=== PATIENT | male | born 1975 | race African-American/Black ===

== ENCOUNTER 2017-01-17 11:44 | Emergency (ER) | payer MEDICAID ==
[~2017-01-17] VITALS: Ht 188 cm; Wt 115.7 kg
[~2017-01-17 11:44] MED LIST: NKM; ZOFRAN ODT4 MG ORAL
--- NOTE | 2017-01-17 12:30 | Emergency Room Report ---
History of Present Illness General Chief Complaint: General Complaint Source: Patient Present Illness HPI Patient presents with 2 different complaints Initially reports that for the past 2 weeks he felt tingling and sharp pain to the left anterior upper thigh Denies any cramping pain denies any focal weakness Pain is 5/10 Starts just below the inguinal region anteriorly just above the knee Denies any fall or trauma Denies any back pain Denies any calf pain Patient also reports discoloration of his fore head bilaterally This occurred about one week ago Doesn't recall any medications or any other contact Denies any chest pain or shortness of breath denies any vomiting or diarrhea denies any recent travel Allergies: Coded Allergies: No Known Allergies (Unverified , 10/10/15) Patient History Past Medical History: see triage record Pertinent Family History: none Reviewed Nursing Documentation: PMH: Agreed, PSxH: Agreed Nursing Documentation-PMH Past Medical History: No Stated History Review of Systems All Other Systems: negative except mentioned in HPI Physical Exam Vital Signs Date Time Temp Pulse Resp B/P (MAP) Pulse Ox O2 Delivery O2 Flow Rate FiO2 01/17/17 11:45 98.1 57 18 128/84 98 Room Air Sp02 EP Interpretation: reviewed, normal General Appearance: well appearing, no apparent distress Head: normocephalic, atraumatic Eyes: bilateral eye PERRL, bilateral eye EOMI ENT: hearing grossly normal, normal pharynx, TMs + canals normal, uvula midline Neck: full range of motion, supple, no meningismus, no bony tend Respiratory: lungs clear, normal breath sounds, no rhonchi, no respiratory distress, no retraction, no accessory muscle use Cardiovascular #1: normal peripheral pulses, regular rate, rhythm, no edema, no gallop, no JVD, no murmur Gastrointestinal: normal bowel sounds, non tender, soft, no mass, no organomegaly, non-distended, no guarding, no hernia, no pulsatile mass, no rebound Genitourinary: no CVA tenderness Musculoskeletal: normal inspection - Subjectively patient has a sharp tingling discomfort left anterior thigh, however no obvious blisters, no obvious dermatomal finding. There is a questionable mild discoloration. The fore head reveals darker pigmented skin just above bilateral eyebrows, there is a somewhat malar presentation to it Neurologic: oriented x3, responsive, application development team lead III-XII nml as tested, motor strength/ tone normal Psychiatric: mood/affect normal Skin: palpation normal, other - as above Lymphatic: normal inspection, no adenopathy Medical Decision Making Diagnostic Impression: Primary Impression: Neuropathy Additional Impression: Rash and nonspecific skin eruption ER Course Multiple differentials are entertained Rhabdomyolysis does not appear to be clinically in line with the presentation There is a neuropathic component to this However patient has no back discomfort Consideration for shingles is made without the obvious rash, course the patient' s facial complaints multiple pathologies such as autoimmune disease and lupus also considered At this time however patient has a benign clinical evaluation I did not feel that any further emergency workup was required and the patient is stable for close outpatient followup Last Vital Signs Date Time Temp Pulse Resp B/P (MAP) Pulse Ox O2 Delivery O2 Flow Rate FiO2 01/17/17 11:45 98.1 57 18 128/84 98 Room Air Status: unchanged Disposition: HOME, SELF-CARE Condition: Stable Additional Instructions: Patient is provided with the discharge instructions notified to follow up with primary doctor in the next 2-3 days otherwise return to the er with any worsening symptoms. Please note that this report is being documented using [employer] technology. This can lead to erroneous entry secondary to incorrect interpretation by the dictating instrument. CRISPIN SALTER D.O. Jan 17, 2017 12:30
[2017-01-17] MEDS ORDERED: ACYCLOVIR400 MG ORAL (12:31)
[2017-01-17] MEDS ORDERED: PREDNISONE20 MG ORAL (12:31)
[2017-01-17 12:39] VITALS: BP 128/84
== END 2017-01-17 12:40 | disposition home or self-care (01) ==
LOC: EMR 12:20
DX: G62.9 Polyneuropathy, unspecified (principal); R21 Rash and other nonspecific skin eruption
CPT/HCPCS: 99284

== ENCOUNTER 2017-02-13 06:57 | Emergency (ER) | payer MEDICAID ==
[~2017-02-13] VITALS: Ht 188 cm; Wt 115.7 kg
[~2017-02-13 06:57] MED LIST changes: +ACYCLOVIR400 MG ORAL; +PREDNISONE20 MG ORAL
[2017-02-13 07:12] VITALS: BP 130/79
[2017-02-13] MEDS ORDERED: Fluorescein Strips ONE (07:14)
[2017-02-13] MEDS ORDERED: Fluorescein Strips LEFT EYE ONE (07:15)
[2017-02-13] MEDS ORDERED: Tetracaine 0.5% Opth 4ml Soln ONE (07:15)
[2017-02-13] MEDS ORDERED: Tetracaine 0.5% Opth 4ml Soln RIGHT EYE ONE (07:15)
[2017-02-13] MEDS ORDERED: POLYTRIM OP SOL10 ML RIGHT EYE (07:29)
--- NOTE | 2017-02-13 07:38 | Emergency Room Report ---
History of Present Illness General Chief Complaint: Eye Problems Source: Patient Present Illness HPI 41-year-old male no significant past medical history presenting with right eye pain. Patient states that on Saturday he accidentally scratched his eye with his fingernail, has had pain to eye, clear tearing, also with foreign body sensation. Also complains of blurry vision. No other complaints. Does not wear contacts Allergies: Coded Allergies: No Known Allergies (Unverified , 10/10/15) Patient History Past Medical History: see triage record Past Surgical History: none Pertinent Family History: none Reviewed Nursing Documentation: PMH: Agreed, PSxH: Agreed Nursing Documentation-PMH Past Medical History: No Stated History Review of Systems All Other Systems: negative except mentioned in HPI Physical Exam Vital Signs Date Time Temp Pulse Resp B/P (MAP) Pulse Ox O2 Delivery O2 Flow Rate FiO2 02/13/17 07:02 97.9 54 18 130/79 95 Room Air Sp02 EP Interpretation: reviewed, normal General Appearance: normal inspection, well appearing, no apparent distress, alert, GCS 15, non-toxic Head: normocephalic, atraumatic Eyes: right eye normal inspection - moderate sized corneal abrasion, right eye Scleral Injection, bilateral eye PERRL, bilateral eye EOMI, bilateral eye other - 20/20 L eye, 20/100 R eye ENT: normal ENT inspection, normal pharynx, normal voice, moist mucus membranes Neck: normal inspection, full range of motion, supple Respiratory: normal inspection, lungs clear, normal breath sounds, no respiratory distress, no retraction, no wheezing, speaking full sentences, chest symmetrical Cardiovascular #1: normal inspection, regular rate, rhythm, no edema, normal capillary refill Cardiovascular #2: 2+ radial (R), 2+ radial (L) Gastrointestinal: normal inspection, non tender, soft, non-distended, no guarding Musculoskeletal: normal inspection, back normal, normal range of motion, non- tender Neurologic: normal inspection, alert, oriented x3, responsive, motor strength/ tone normal, sensory intact, normal gait, speech normal Psychiatric: normal inspection, judgement/insight normal, memory normal Skin: normal inspection, normal color, no rash, warm/dry, well hydrated, normal turgor Medical Decision Making Diagnostic Impression: Primary Impression: Corneal abrasion, right ER Course 41-year-old male with left eye pain DDX: Corneal abrasion Plan: DC with Polytrim ER course: Patient has remained stable during ED stay. Disposition: Prescriptions given are Polytrim ophthalmic ointment Patient is instructed to follow up with their primary care doctor within 5 days. Patient is instructed to follow up with ophthalmology in one week Strict return precautions discussed with patient such as fever, chills, worsening/severe pain, nausea, vomiting, which may indicate severe illness. Patient verbalizes understanding and agrees with plan. Please note that this Emergency Department Report was dictated using [employer] specialist technology software, occasionally this can lead to erroneous entry secondary to interpretation by the dictation equipment Last Vital Signs Date Time Temp Pulse Resp B/P (MAP) Pulse Ox O2 Delivery O2 Flow Rate FiO2 02/13/17 07:12 18 130/79 95 Room Air 02/13/17 07:02 97.9 54 Disposition: HOME, SELF-CARE Condition: Stable Scripts Polymyxin/Trimethoprim (Polytrim Eye Drops) 10 Ml Drops 1 DROP RIGHT EYE Q4H for 5 Days, #1 TUB 0 Refills Prov: Al Myers M.D. 02/13/17 Patient Instructions: Corneal Abrasion Additional Instructions: Please follow up with an jewelry bench molder in one week without fail Please take your prescription medication as directed. Al Myers M.D. Feb 13, 2017 07:38
[2017-02-13 07:40] VITALS: BP 130/79
== END 2017-02-13 07:45 | disposition home or self-care (01) ==
LOC: EMR 07:30
DX: S05.01XA Injury of conjunctiva and corneal abrasion without foreign body, right eye, initial encounter (principal); X58.XXXA Exposure to other specified factors, initial encounter; Y93.9 Activity, unspecified; Y99.9 Unspecified external cause status; H57.9 Unspecified disorder of eye and adnexa
CPT/HCPCS: 99283

== ENCOUNTER 2018-07-24 17:41 | Emergency (ER) | payer MEDICAID ==
[~2018-07-24] VITALS: Ht 190.5 cm; Wt 120.2 kg
[~2018-07-24 17:41] MED LIST changes: +POLYTRIM OP SOL10 ML RIGHT EYE
[2018-07-24 18:00] VITALS: BP 119/69
--- NOTE | 2018-07-24 18:29 | Emergency Room Report ---
History of Present Illness General Chief Complaint: Flu Like Symptoms Source: Patient Present Illness HPI 11/12 in severity abdominal pain, diarrhea, headaches and body aches 3 days.Eyes recent head trauma, fevers, chills, blood in the stool or black tarry stools. Patient denies nausea or vomiting. Denies recent travel or antibiotic use. Denies CP, Palpitations, LOC, AMS, dizziness, Changes in Vision , Sensation, paresthesias, or a sudden severe headache. Denies modifying factors. Allergies: Coded Allergies: No Known Allergies (Unverified , 10/10/15) Patient History Past Medical History: see triage record Past Surgical History: none Pertinent Family History: none Immunizations: UTD Reviewed Nursing Documentation: PMH: Agreed; PSxH: Agreed Nursing Documentation-PMH Past Medical History: No Stated History Review of Systems All Other Systems: negative except mentioned in HPI Physical Exam Vital Signs Date Time Temp Pulse Resp B/P (MAP) Pulse Ox O2 Delivery O2 Flow Rate FiO2 07/24/18 17:51 98.2 74 18 119/69 96 Room Air Sp02 EP Interpretation: reviewed, normal General Appearance: no apparent distress, alert, GCS 15, non-toxic Head: normocephalic, atraumatic Eyes: bilateral eye normal inspection, bilateral eye PERRL ENT: hearing grossly normal, normal voice Neck: full range of motion Respiratory: lungs clear, normal breath sounds, speaking full sentences Cardiovascular #1: regular rate, rhythm Gastrointestinal: normal bowel sounds, non tender, soft, non-distended, no guarding Musculoskeletal: back normal, gait/station normal, normal range of motion, non- tender Neurologic: alert, oriented x3, responsive, motor strength/tone normal, sensory intact, speech normal, grossly normal Psychiatric: judgement/insight normal Skin: normal color, no rash, warm/dry, well hydrated Lymphatic: no adenopathy Medical Decision Making PA Attestation Dr. gregorio is my supervising Physician whom patient management has been discussed with. Diagnostic Impression: Primary Impression: Gastroenteritis Additional Impression: Viral syndrome ER Course 11/12 in severity abdominal pain, diarrhea, headaches and body aches 3 days.Eyes recent head trauma, fevers, chills, blood in the stool or black tarry stools. Patient denies nausea or vomiting. Denies recent travel or antibiotic use. Denies CP, Palpitations, LOC, AMS, dizziness, Changes in Vision , Sensation, paresthesias, or a sudden severe headache. Denies modifying factors. Ddx considered but are not limited to GE, colitis, acute appy, SBO, diverticulitis just to name a few. Vital signs: pt. is afebrile, H&PE are most consistent with GE most likely viral in etiology, no evidence to suggest acute abdomen on physical exam. ORDERS: -None required at this time, the dx is clinical. ED INTERVENTIONS: -Bentyl PO -I do not identify an emergent condition at this time. With current presentation , pt. is stable for close outpatient follow up and conservative treatment. D/ w pt. to return promptly to ED with worsening or new symptoms.- Pt. verbalizes' understanding and agreement with proposed treatment plan.proposed treatment plan. DISCHARGE: At this time pt. is stable for d/c to home. Will provide printed patient care instructions, and any necessary prescriptions. Care plan and follow up instructions have been discussed with the patient prior to discharge. Last Vital Signs Date Time Temp Pulse Resp B/P (MAP) Pulse Ox O2 Delivery O2 Flow Rate FiO2 07/24/18 17:51 98.2 74 18 119/69 96 Room Air Disposition: HOME, SELF-CARE Condition: Stable Scripts Acetaminophen (Tylenol) 325 Mg Tablet 325 MG ORAL Q6H PRN for Prn Pain/Headache/Temp > 101, #30 TAB 0 Refills Prov: Dorie Paniagua 07/24/18 Dicyclomine Hcl* (DICYCLOMINE HCL*) 10 Mg Capsule 10 MG PO QID, #20 CAP Prov: Dorie Paniagua 07/24/18 Cyclobenzaprine Hcl (CYCLOBENZAPRINE HCL) 7.5 Mg Tablet 7.5 MG ORAL THREE TIMES A DAY, #20 TAB Prov: Dorie Paniagua 07/24/18 Departure Forms: Return to Work Return to Work Date: Jul 27, 2018 Work Restrictions: None Other Restrictions: symptoms onset since 07/21/2018. Please excuse these dates as well. Return to Full Activity: Jul 27, 2018 Patient Instructions: Diarrhea, Adult, [id number], Food Choices to Help Relieve Diarrhea, Adult Additional Instructions: Take medications as directed. Follow up with a Primary Care Provider in 3-5 days, even if your symptoms have resolved. --Please review list of primary care clinics, if you do not already have a primary care provider Return sooner to ED if new symptoms occur, or current symptoms become worse. Do not drink alcohol, drive, or operate heavy machinery while taking Robaxin as this may cause drowsiness. - Please note that this Emergency Department Report was dictated using [employer], [employer] technology software, occasionally this can lead to erroneous entry secondary to interpretation by the dictation equipment. Dorie Paniagua Jul 24, 2018 18:29
[2018-07-24] MEDS ORDERED: Dicyclomine HCl 10mg/5ml oral soln ORAL ONE (18:30)
[2018-07-24] MEDS ORDERED: DICYCLOMINE HCL10 MG PO (18:34)
[2018-07-24] MEDS ORDERED: CYCLOBENZAPRIN7.5 MG ORAL (18:34)
[2018-07-24] MEDS ORDERED: TYLENOL325 MG ORAL (18:34)
[2018-07-24 18:56] VITALS: BP 121/71
--- NOTE | 2018-07-24 18:57 | NUR ---
ER DISCHARGE NOTE: Patient is cleared to be discharged per ERMD, pt is aox4, on room air, with stable vital signs. pt was given dc and prescription instructions, pt was able to verbalize understanding, pt id band removed. pt is able to ambulate with steady gait. pt took all belongings.
== END 2018-07-24 18:58 | disposition home or self-care (01) ==
LOC: EMR 18:17
DX: K52.9 Noninfective gastroenteritis and colitis, unspecified (principal); B34.9 Viral infection, unspecified
CPT/HCPCS: 99283